=== PATIENT | female | born 1970 | race Caucasian/White ===

== ENCOUNTER 2016-03-14 09:07 | Inpatient (IN) | payer OTHER ==
[~2016-03-14] VITALS: Ht 170.2 cm; Wt 73.0 kg
[2016-03-14 09:09] VITALS: BP 140/72; PULSE 58; RESP 24; TEMP 98.1; O2SAT 99
[2016-03-14] MEDS ORDERED: ONDANSETRON HCL 4 MG/2 ML VIAL ONE (09:16)
[2016-03-14] MEDS ORDERED: SODIUM CHLOR 0.9% 1000 ML INJ 1,000 ML IV SCH (09:34)
--- NOTE | 2016-03-14 09:36 | PD ---
HPI Chief Complaint: Abdominal Pain Time Seen by Provider: 09:34 Travel History International Travel<30 days: No Contact w/Intl Traveler<30days: No Traveled to known affect area: No History of Present Illness HPI 46-year-old female came to the emergency room with history of abdominal pain and vomiting. Patient is here with her friend and together they're giving the history. Patient appears to be in significant distress and anxious. She was brought in from the triage in a wheelchair holding the emesis bag and retching constantly. Patient says that she was admitted at [facility] for this condition over the weekend and was discharge yesterday. However her symptoms continued at home and that's why she has come back to this emergency room now. Patient was diagnosed with pancreatitis 20 years ago. She occasionally gets symptoms of abdominal pain nausea and vomiting but usually it goes away. She never had to come to the emergency room up until couple days ago. There is associated abdominal pain which she points to all over her abdomen. There was CAT scan and x-rays done at the other hospital which she was told was within normal limits. She was diagnosed with enteritis and colitis and was diagnosed home on Flagyl, Zofran and MiraLAX. She has been taking these medications like she supposed to. Vital signs were stable. [facility] Past Medical History Narrative Medical List of her past medical history was reviewed from the nursing note. Social History Tobacco Use: Yes Allergies-Medications (Allergen,Severity, Reaction): Coded Allergies: No Known Allergies (Unverified , 03/14/16) Comments No known drug allergies. Reported Meds & Prescriptions Reported Meds & Active Scripts Active Reported Flagyl (Metronidazole) 500 Mg Tab 500 Mg PO TID Morphine ER (Morphine Sulfate) 30 Mg Tab 30 Mg PO DAILY Synthroid (Levothyroxine Sodium) 125 Mcg Tab 125 Mcg PO DAILY Narrative Medication List of her home medications reviewed from the nursing note. Review of Systems Except as stated in HPI: all other systems reviewed are Neg Physical Exam Narrative GENERAL: Awake, alert, anxious, significant distress SKIN: Warm and dry. HEAD: Atraumatic. Normocephalic. EYES: Pupils equal and round. No scleral icterus. No injection or drainage. ENT: No nasal bleeding or discharge. Mucous membranes pink and moist. NECK: Trachea midline. No JVD. CARDIOVASCULAR: Regular rate and rhythm. No murmur appreciated. RESPIRATORY: No accessory muscle use. Clear to auscultation. Breath sounds equal bilaterally. GASTROINTESTINAL: Abdomen soft, non-tender, decreased bowel sounds, nondistended. Hepatic and splenic margins not palpable. MUSCULOSKELETAL: No obvious deformities. No clubbing. No cyanosis. No edema. NEUROLOGICAL: Awake and alert. No obvious cranial nerve deficits. Motor grossly within normal limits. Normal speech. PSYCHIATRIC: Appropriate mood and affect; insight and judgment normal. Data Data Last Documented VS Vital Signs Date Time Temp Pulse Resp B/P Pulse Ox O2 Delivery O2 Flow Rate FiO2 03/14/16 11:01 20 03/14/16 09:09 98.1 58 140/72 99 Room Air Orders Ondansetron Inj (Zofran Inj) (03/14/16 09:16) Complete Blood Count With Diff (03/14/16 09:34) Comprehensive Metabolic Panel (03/14/16 09:34) Lipase (03/14/16 09:34) Urinalysis - C+S If Indicated (03/14/16 09:34) Iv Access Insert/Monitor (03/14/16 09:34) Ecg Monitoring (03/14/16 09:34) Oximetry (03/14/16 09:34) Ondansetron Inj (Zofran Inj) (03/14/16 09:45) Pantoprazole Inj (Protonix Inj) (03/14/16 09:45) Sodium Chlor 0.9% 1000 Ml Inj (Ns 1000 M (03/14/16 09:34) Sodium Chloride 0.9% Flush (Ns Flush) (03/14/16 09:45) Electrocardiogram (03/14/16 09:34) Ketorolac Inj (Toradol Inj) (03/14/16 09:45) Ed Poc Ultrasound (03/14/16 09:34) Promethazine Inj (Phenergan Inj) (03/14/16 10:30) Place Ng Tube To Low Intermit (03/14/16 11:28) Ct Abd/Pel W/O Iv Contrast (03/14/16 ) Lidocaine 2% Viscous (Xylocaine 2% Visco (03/14/16 11:45) Metoclopramide Inj (Reglan Inj) (03/14/16 12:45) Admit Order (Ed Use Only) (03/14/16 12:47) Labs Laboratory Tests Test 03/14/16 03/14/16 03/14/16 09:50 10:00 10:40 Sodium Level 138 MEQ/L Potassium Level 4.5 MEQ/L Chloride Level 103 MEQ/L Carbon Dioxide Level 28.6 MEQ/L Anion Gap 6 MEQ/L Blood Urea Nitrogen 7 MG/DL Creatinine 0.97 MG/DL Estimat Glomerular Filtration 61 ML/MIN Rate Random Glucose 140 MG/DL Calcium Level 9.7 MG/DL Total Bilirubin 0.4 MG/DL Aspartate Amino Transf 37 U/L (AST/SGOT) Alanine Aminotransferase 48 U/L (ALT/SGPT) Alkaline Phosphatase 48 U/L Total Protein 8.0 GM/DL Albumin 4.2 GM/DL Lipase 79 U/L Urine Color YELLOW Urine Turbidity HAZY Urine pH 6.0 Urine Specific O'Brien 1.020 Urine Protein NEG mg/dL Urine Glucose (UA) NEG mg/dL Urine Ketones NEG mg/dL Urine Occult Blood NEG Urine Nitrite NEG Urine Bilirubin NEG Urine Urobilinogen LESS THAN 2.0 MG/DL Urine Leukocyte Esterase NEG Urine WBC 1 /hpf Urine Squamous Epithelial 1 /hpf Cells Urine Calcium Oxalate Crystals RARE /hpf Urine Amorphous Sediment RARE Urine Hyaline Casts 1 /lpf Urine Mucus MOD /lpf Microscopic Urinalysis Comment CULT NOT INDICATED White Blood Count 15.5 TH/MM3 Red Blood Count 4.88 MIL/MM3 Hemoglobin 15.2 GM/DL Hematocrit 44.3 % Mean Corpuscular Volume 90.9 FL Mean Corpuscular Hemoglobin 31.2 PG Mean Corpuscular Hemoglobin 34.3 % Concent Red Cell Distribution Width 13.0 % Platelet Count 498 TH/MM3 Mean Platelet Volume 9.3 FL Neutrophils (%) (Auto) 79.1 % Lymphocytes (%) (Auto) 15.4 % Monocytes (%) (Auto) 4.3 % Eosinophils (%) (Auto) 0.6 % Basophils (%) (Auto) 0.6 % Neutrophils # (Auto) 12.3 TH/MM3 Lymphocytes # (Auto) 2.4 TH/MM3 Monocytes # (Auto) 0.7 TH/MM3 Eosinophils # (Auto) 0.1 TH/MM3 Basophils # (Auto) 0.1 TH/MM3 CBC Comment AUTO DIFF Differential Comment AUTO DIFF CONFIRMED Platelet Estimate HIGH Platelet Morphology Comment NORMAL Red Cell Morphology Comment NORMAL MDM Medical Decision Making Medical Screen Exam Complete: Yes Emergency Medical Condition: Yes Medical Record Reviewed: Yes Interpretation(s) Twelve-lead EKG was reviewed by me. Normal sinus rhythm, normal axis, nonspecific ST-T wave changes. Heart rate of 60 bpm. Differential Diagnosis Gastroparesis, intractable vomiting, acute on chronic abdominal pain, acute pancreatitis. Narrative Course 12:26 PM blood test results are back and patient has some leukocytosis which could be from violent retching. We tried to call [facility] to send patient's medical record and test results which has not been faxed yet. Patient was given IV Zofran followed by Phenergan but she continues to vomit. I 've ordered a CT scan of her abdomen and pelvis and asked the nurse to put a nasogastric tube in. CT has been done. Awaiting for the report. Patient will need to be admitted for intractable vomiting. 12:[address] scan report just came back and shows possible partial small bowel obstruction. The NGT is already in. Awaiting for the hospitalist to call back. Procedures EKG Prior to Arrival: No Diagnosis Primary Impression: Partial small bowel obstruction Additional Impressions: Abdominal pain Qualified Code: R10.84 - Generalized abdominal pain Intractable vomiting Qualified Code: R11.2 - Intractable vomiting with nausea, unspecified vomiting type Admitting Information Admitting Physician Requests: Admit Soila Burgos MD Mar 14, 2016 09:36
[2016-03-14] MEDS ORDERED: KETOROLAC TROMETHAMINE 30 MG/ML (IVP) VIAL IVP ONE (09:45)
[2016-03-14] MEDS ORDERED: ONDANSETRON HCL 4 MG/2 ML VIAL IVP ONE (09:45)
[2016-03-14] MEDS ORDERED: PANTOPRAZOLE SODIUM 40 MG VIAL IVP ONE (09:45)
[2016-03-14] MEDS ORDERED: SODIUM CHLORIDE 0.9% FLUSH 5 ML FLUSH IVF PRN (09:45)
[2016-03-14] MEDS ORDERED: MORP1TAB25 PO (09:57)
[2016-03-14] MEDS ORDERED: LEVO.125 PO (09:57)
[2016-03-14] MEDS ORDERED: METR-1 PO (09:58)
[2016-03-14] MEDS ORDERED: PROMETHAZINE INJ 25 MG/ML VIAL IM ONE (10:30)
[2016-03-14 10:33] LABS: ALKALINE PHOSPHATASE 48 U/L (45-117); TOTAL BILIRUBIN ADULT 0.4 MG/DL (0.2-1.0)
[2016-03-14 10:41] LABS: ALT (GPT) 48 U/L (10-53); ANION GAP 6 MEQ/L (5-15); AST (GOT) 37 U/L (15-37); BICARBONATE 28.6 MEQ/L (21.0-32.0); BLOOD UREA NITROGEN 7 MG/DL (7-18); CHLORIDE 103 MEQ/L (98-107); GLOMERULAR FILTRATION RATE 61 ML/MIN (>89); SODIUM (NA) 138 MEQ/L (136-145)
[2016-03-14 10:43] LABS: POTASSIUM 4.5 MEQ/L (3.5-5.1)
[2016-03-14 10:50] LABS: AUTOMATED NEUTROPHIL # 12.3 TH/MM3 (1.8-7.7); BASOPHIL # 0.1 TH/MM3 (0-0.2); BASOPHIL % 0.6 % (0.0-2.0); EOSINOPHIL # 0.1 TH/MM3 (0-0.4); EOSINOPHIL % 0.6 % (0.0-4.0); HEMATOCRIT 44.3 % (35.0-46.0); LYMPH % 15.4 % (9.0-44.0); LYMPHOCYTE # 2.4 TH/MM3 (1.0-4.8); MEAN CELL VOLUME 90.9 FL (80.0-100.0); MEAN CORPUSCULAR HEMOGLOBIN 31.2 PG (27.0-34.0); MEAN CORPUSCULAR HGB CONC 34.3 % (32.0-36.0); MONO % 4.3 % (0.0-8.0); NEUT % 79.1 % (16.0-70.0); PLATELET COUNT 498 TH/MM3 (150-450); RED BLOOD COUNT 4.88 MIL/MM3 (4.00-5.30); WHITE BLOOD COUNT 15.5 TH/MM3 (4.0-11.0)
[2016-03-14 11:02] LABS: HEMO FLAGS AUTO DIFF
[2016-03-14 11:26] LABS: PLATELET ESTIMATE SMEAR HIGH (NORMAL); PLATELET MORPHOLOGY NORMAL (NORMAL); SCAN/DIFF AUTO DIFF CONFIRMED
[2016-03-14] MEDS ORDERED: LIDOCAINE VISCOUS 2% SOLN 15 ML UDC SWISH-SWAL ONE (11:45)
--- NOTE | 2016-03-14 12:23 | RADRPT ---
EXAM DATE/TIME: 03/14/2016 11:54 [facility] COMPARISON: No previous studies available for comparison. INDICATIONS : Worsening diffuse abdomen pain since last night. ORAL CONTRAST: No oral contrast ingested. RADIATION DOSE: 8.07 CTDIvol (mGy) MEDICAL HISTORY : None SURGICAL HISTORY : oophorectomy ENCOUNTER: Initial ACUITY: 2 days PAIN SCALE: 7/10 LOCATION: Bilateral abdomen TECHNIQUE: Volumetric scanning of the abdomen and pelvis was performed. Using automated exposure control and adjustment of the mA and/or kV according to patient size, radiation dose was kept as low as reasonably achievable to obtain optimal diagnostic quality images. FINDINGS: LOWER LUNGS: The visualized lower lungs are clear. LIVER: Homogeneous density without lesion. There is no dilation of the biliary tree. No calcifi ed gallstones. SPLEEN: Normal size without lesion. PANCREAS: Within normal limits. KIDNEYS: Normal in size and shape. There is no mass, stone, or hydronephrosis. ADRENAL GLANDS: Within normal limits. VASCULAR: There is no aortic aneurysm. BOWEL/MESENTERY: There are multiple fluid filled mildly dilated loops of jejunum. Differential in cludes partial small bowel obstruction, small bowel ileus, and jejunitis. Clinical correlation is rec ommended. ABDOMINAL WALL: Within normal limits. RETROPERITONEUM: There is no lymphadenopathy. BLADDER: No wall thickening or mass. REPRODUCTIVE: Within normal limits. INGUINAL: There is no lymphadenopathy or hernia. MUSCULOSKELETAL: Within normal limits for patient age. CONCLUSION: Multiple fluid filled mildly dilated loops of jejunum suggesting partial small bowel obstruction, small bowel ileus or jejunitis. Clinical correlation is recommended. Clinton Cm MD on March 14, 2016 at 12:16 Board Certified Radiologist. This report was verified electronically.
[2016-03-14] MEDS ORDERED: METOCLOPRAMIDE HCL 10 MG/2 ML VIAL IV PUSH ONE (12:45)
[2016-03-14 13:06] LABS: BLOOD, URINE NEG (NEG); CALCIUM OXALATE CRYSTALS,URINE RARE /hpf; COMMENT (UR) CULT NOT INDICATED; CULTURE IF INDICATED CULT NOT INDICATED; GLUCOSE,URINE NEG (NEG); HYALINE CAST, URINE 1 /lpf (RARE); KETONE, URINE NEG (NEG); MUCUS URINE MOD /lpf (OCC); NITRITE,URINE NEG (NEG); SQUAMOUS EPITHELIAL CELL URINE 1 /hpf (0-5); URINE COLOR YELLOW (YELLW/STRAW)
--- NOTE | 2016-03-14 13:10 | HHI.HP ---
[facility] Service [facility] Primary Care Physician Unknown Admission Diagnosis bowel obstruction Diagnoses: (1) Abdominal pain (2) Intractable vomiting (3) Partial small bowel obstruction (4) Hypothyroidism (5) Leukocytosis Chief Complaint: Abdominal pain Travel History International Travel<30 Days: No Contact w/Intl Traveler <30 Da: No Traveled to Known Affected Are: No History of Present Illness The patient is a 46-year-old female who presented to the emergency department today complaining of worsening abdominal pain, nausea, and vomiting. She states that she was hospitalized at [facility] in [place] last week. She was discharged on Monday. Her symptoms were very similar and she was told that she might have a small bowel obstruction. She states that she did well on Monday and Monday following discharge from the hospital, but her symptoms worsened this morning. She developed intractable nausea and vomiting as well as upper abdominal pain. She also reports headache. She has some chest discomfort, which she feels is the same as the upper abdominal pain. She does feel somewhat better at this time than when she came in. She did have a bowel movement today, which she describes as loose, but not watery. Review of Systems Constitutional: DENIES: Fever, Chills, Night Sweats Eyes: DENIES: Blurred vision, Vision loss Ears, nose, mouth, throat: DENIES: Hearing loss Respiratory: DENIES: Cough, Wheezing, Sputum production, Shortness of breath Cardiovascular: DENIES: Chest pain, Palpitations, Dyspnea on Exertion, Lower Extremity Edema Gastrointestinal: COMPLAINS OF: Abdominal pain, Nausea, Vomiting, DENIES: Constipation, Diarrhea Genitourinary: DENIES: Urinary frequency, Urinary incontinence, Urgency, Hematuria, Dysuria, Nocturia Musculoskeletal: DENIES: Joint pain, Muscle aches Integumentary: DENIES: Pruritus, Rash Hematologic/lymphatic: DENIES: Bruising Neurologic: COMPLAINS OF: Headache Past Family Social History Past Medical History Fibromyalgia Degenerative disc disease Hypothyroidism Past Surgical History Oophorectomy Reported Medications Flagyl (Metronidazole) 500 Mg Tab 500 Mg PO TID Morphine ER (Morphine Sulfate) 30 Mg Tab 30 Mg PO DAILY Synthroid (Levothyroxine Sodium) 125 Mcg Tab 125 Mcg PO DAILY Allergies: Coded Allergies: No Known Allergies (Unverified , 03/14/16) Family History Heart disease Epilepsy Diabetes mellitus Social History Smokes almost 1 pack per day. Denies alcohol use. Did use marijuana recently, but denies IV drug use. Physical Exam Vital Signs Vital Signs Date Time Temp Pulse Resp B/P Pulse Ox O2 Delivery O2 Flow Rate FiO2 03/14/16 09:09 98.1 58 24 140/72 99 Room Air Physical Exam GENERAL: Well-nourished, well-developed female in no acute distress. HEENT: Normocephalic, atraumatic. Pupils equal, round and reactive. Extraocular movements intact. No scleral icterus. No injection or drainage. Oropharynx is clear. Mucous membranes are moist. NG tube in place. CARDIOVASCULAR: Regular rate and rhythm without murmurs, gallops, or rubs. RESPIRATORY: Clear to auscultation. No wheezes, rales, or rhonchi. Breathing is non-labored. GASTROINTESTINAL: Abdomen soft, tender to palpation in the midepigastric region , nondistended. EXTREMITIES: No lower extremity edema. No calf tenderness. PSYCH: Alert and oriented x 3. Laboratory Laboratory Tests Test 03/14/16 03/14/16 09:50 10:40 Sodium Level 138 Potassium Level 4.5 Chloride Level 103 Carbon Dioxide Level 28.6 Anion Gap 6 Blood Urea Nitrogen 7 Creatinine 0.97 Estimat Glomerular Filtration 61 Rate Random Glucose 140 Calcium Level 9.7 Total Bilirubin 0.4 Aspartate Amino Transf 37 (AST/SGOT) Alanine Aminotransferase 48 (ALT/SGPT) Alkaline Phosphatase 48 Total Protein 8.0 Albumin 4.2 Lipase 79 White Blood Count 15.5 Red Blood Count 4.88 Hemoglobin 15.2 Hematocrit 44.3 Mean Corpuscular Volume 90.9 Mean Corpuscular Hemoglobin 31.2 Mean Corpuscular Hemoglobin 34.3 Concent Red Cell Distribution Width 13.0 Platelet Count 498 Mean Platelet Volume 9.3 Neutrophils (%) (Auto) 79.1 Lymphocytes (%) (Auto) 15.4 Monocytes (%) (Auto) 4.3 Eosinophils (%) (Auto) 0.6 Basophils (%) (Auto) 0.6 Neutrophils # (Auto) 12.3 Lymphocytes # (Auto) 2.4 Monocytes # (Auto) 0.7 Eosinophils # (Auto) 0.1 Basophils # (Auto) 0.1 CBC Comment AUTO DIFF Differential Comment AUTO DIFF CONFIRMED Platelet Estimate HIGH Platelet Morphology Comment NORMAL Red Cell Morphology Comment NORMAL Result Diagram: 03/14/16 1040 03/14/16 0950 Imaging Last Impressions Abdomen/Pelvis CT 03/14/16 0000 Signed Impressions: Service Date/Time: Monday, March 14, 2016 11:54 - CONCLUSION: Multiple fluid filled mildly dilated loops of jejunum suggesting partial small bowel obstruction, small bowel ileus or jejunitis. Clinical correlation is recommended. Clinton Cm MD Assessment and Plan Assessment and Plan 1. Abdominal pain: Secondary to partial small bowel obstruction. Patient also with intractable nausea/vomiting. NG tube placed in the ER. Continue antiemetics. Consult gastroenterology. Nothing by mouth. Continue IV fluids, pain control. 2. Leukocytosis: Likely stress reaction. Monitor labs. 3. Tobacco abuse: Patient has been counseled to quit smoking. 4. Chronic narcotic use: Patient takes morphine 15 mg twice a day for degenerative disc disease and fibromyalgia. I discussed with her that this could contribute to constipation and possibly be contributing to her symptoms. We will use caution with pain medications. Will cover with IV morphine at this time as she is nothing by mouth. 5. Hypothyroidism: Continue Synthroid. 6. DVT prophylaxis: SCDs, JACKELIN gonzales. Problem Qualifiers (1) Abdominal pain: Qualified Code: R10.84 - Generalized abdominal pain (2) Intractable vomiting: Qualified Code: R11.2 - Intractable vomiting with nausea, unspecified vomiting type Maurilio Nicholson MD Mar 14, 2016 13:10
[2016-03-14 13:30] VITALS: BP 108/65; PULSE 60; RESP 20; TEMP 99.3; O2SAT 99
[2016-03-14] MEDS ORDERED: NALOXONE HCL 0.4 MG/ML AMP IV PRN (13:30)
[2016-03-14] MEDS: SODIUM CHLOR 0.9% 1000 ML INJ 1,000 ML IV SCH (14:00)
[2016-03-14] MEDS: MORPHINE SULFATE 4 MG/ML INJ IV PRN ×3 (14:01→20:57)
--- NOTE | 2016-03-14 15:30 | PD.CONS ---
HPI History of Present Illness This is a 46 year old female who has had intermittent abdominal pain and bloating for years. She went to [place] for a week 02/16-02/23. She had some abdominal distention and discomfort while she was there, but nothing major. Her symptoms gradually worsened over the next 2 weeks. She has chronic constipation and initially thought that this was contributing to her symptoms and therefore quit taking this, but her symptoms only got worse. She went to the hospital on Monday and was sent home. She went back the next day and was hospitalized until Monday. She was initially told that she had a partial small bowel obstruction and then states that she was told that this was okay and that she had an enteritis/colitis. She was treated with Miralax while she hospitalized, but states she was given so much that she started bleeding from being so raw and therefore started "dumping this." She was discharged on flagyl. She continued to have abdominal pain underneath her rib cage on both sides. This is a constant dull ache that sometimes goes to her back. This pain is aggravated by po intake, but in the past when she had this, she reports that she would feel better if she ate. She has associated nausea and vomiting with yellowish gastric secretions, no hematemesis. She had a bowel movement earlier today. She is not having any blood in her stool now. She was diagnosed with pancreatitis in her 20's. SHe underwent an EGD at that time, but has never had a colonoscopy. At the time she drank ETOH and was told if she stopped drinking, this would get better. She quit drinking but continued to have intermittent abdominal pain. She denies any recent antibiotic use other than what she received at the hospital. She denies any other sick contacts. She does not take ibuprofen or aleve. She had an oophorectomy, but denies any other abdominal surgeries. (Dolly Berry) PFSH Past Medical History Fibromyalgia Degenerative disc disease Hypothyroidism Chronic abdominal pain. Vitiligo Chronic joint pain Chronic back pain- on chronic narcotics Past Surgical History Oophorectomy EGD (Dolly Berry) Coded Allergies: No Known Allergies (Unverified , 03/14/16) Medications Allergies Coded Allergies Type Severity Reaction Last Updated Verified No Known Allergies 03/14/16 No Active Scripts Medications Dose Route/Sig Days Date Category Flagyl (Metronidazole) 500 Mg Tab 500 Mg PO TID 03/14/16 Reported Morphine ER (Morphine Sulfate) 30 Mg Tab 30 Mg PO DAILY 03/14/16 Reported Synthroid (Levothyroxine Sodium) 125 Mcg Tab 125 Mcg PO DAILY 03/14/16 Reported Family History Both parents with heart disease, DM Mother also had epilepsy, psoriasis Social History Smokes almost 1 pack per day. Denies alcohol use. Did use marijuana recently, but denies IV drug use. (Dolly Berry) Review of Systems Constitutional: COMPLAINS OF: Fatigue, Weight gain, DENIES: Weight loss, Change in appetite Respiratory: DENIES: Cough Cardiovascular: DENIES: Chest pain Gastrointestinal: COMPLAINS OF: Abdominal pain, Constipation, Nausea, Vomiting , DENIES: Black stools, Bloody stools, Diarrhea, Anorexia, Swelling of Abdomen , Heartburn, Hematemesis Musculoskeletal: COMPLAINS OF: Joint pain, Back pain Integumentary: DENIES: Abnormal pigmentation Neurologic: DENIES: Headache Psychiatric: DENIES: Confusion (Dolly Berry) GI Exam Vitals I&O Vital Signs Date Time Temp Pulse Resp B/P Pulse Ox O2 Delivery O2 Flow Rate FiO2 03/14/16 13:30 99.3 60 20 108/65 99 Room Air 03/14/16 11:01 20 03/14/16 09:09 98.1 58 24 140/72 99 Room Air Imaging Last Impressions Abdomen/Pelvis CT 03/14/16 0000 Signed Impressions: Service Date/Time: Monday, March 14, 2016 11:54 - CONCLUSION: Multiple fluid filled mildly dilated loops of jejunum suggesting partial small bowel obstruction, small bowel ileus or jejunitis. Clinical correlation is recommended. Clinton Cm MD Laboratory Test 03/14/16 03/14/16 03/14/16 09:50 10:00 10:40 Sodium Level 138 MEQ/L Potassium Level 4.5 MEQ/L Chloride Level 103 MEQ/L Carbon Dioxide Level 28.6 MEQ/L Anion Gap 6 MEQ/L Blood Urea Nitrogen 7 MG/DL Creatinine 0.97 MG/DL Estimat Glomerular Filtration 61 ML/MIN Rate Random Glucose 140 MG/DL Calcium Level 9.7 MG/DL Total Bilirubin 0.4 MG/DL Aspartate Amino Transf 37 U/L (AST/SGOT) Alanine Aminotransferase 48 U/L (ALT/SGPT) Alkaline Phosphatase 48 U/L Total Protein 8.0 GM/DL Albumin 4.2 GM/DL Lipase 79 U/L Urine Color YELLOW Urine Turbidity HAZY Urine pH 6.0 Urine Specific Dunbar 1.020 Urine Protein NEG mg/dL Urine Glucose (UA) NEG mg/dL Urine Ketones NEG mg/dL Urine Occult Blood NEG Urine Nitrite NEG Urine Bilirubin NEG Urine Urobilinogen LESS THAN 2.0 MG/DL Urine Leukocyte Esterase NEG Urine WBC 1 /hpf Urine Squamous Epithelial 1 /hpf Cells Urine Calcium Oxalate Crystals RARE /hpf Urine Amorphous Sediment RARE Urine Hyaline Casts 1 /lpf Urine Mucus MOD /lpf Microscopic Urinalysis Comment CULT NOT INDICATED White Blood Count 15.5 TH/MM3 Red Blood Count 4.88 MIL/MM3 Hemoglobin 15.2 GM/DL Hematocrit 44.3 % Mean Corpuscular Volume 90.9 FL Mean Corpuscular Hemoglobin 31.2 PG Mean Corpuscular Hemoglobin 34.3 % Concent Red Cell Distribution Width 13.0 % Platelet Count 498 TH/MM3 Mean Platelet Volume 9.3 FL Neutrophils (%) (Auto) 79.1 % Lymphocytes (%) (Auto) 15.4 % Monocytes (%) (Auto) 4.3 % Eosinophils (%) (Auto) 0.6 % Basophils (%) (Auto) 0.6 % Neutrophils # (Auto) 12.3 TH/MM3 Lymphocytes # (Auto) 2.4 TH/MM3 Monocytes # (Auto) 0.7 TH/MM3 Eosinophils # (Auto) 0.1 TH/MM3 Basophils # (Auto) 0.1 TH/MM3 CBC Comment AUTO DIFF Differential Comment AUTO DIFF CONFIRMED Platelet Estimate HIGH Platelet Morphology Comment NORMAL Red Cell Morphology Comment NORMAL Physical Examination HEENT: Normocephalic; atraumatic; no jaundice. CHEST: CTA CARDIAC: RRR ABDOMEN: Soft, nondistended, mild epigastric tenderness no hepatosplenomegaly; bowel sounds are present in all four quadrants. EXTREMITIES: No clubbing, cyanosis, or edema. SKIN: Normal; no rash; no jaundice. AREA DEVELOPMENT CONSULTANT: No focal deficits; alert and oriented times three. (Dolly Berry) Assessment and Plan Plan ASSESSMENT: - N/V, Abdominal pain with abnormal imaging, possible PSBO. Abdomen/Pelvis CT ( )---> Multiple fluid filled mildly dilated loops of jejunum suggesting partial small bowel obstruction, small bowel ileus or jejunitis. Clinical correlation is recommended. Pt reports that she has had symptoms intermittently for 20 years, but sudden worsening a few weeks ago after traveling to [place]. No abx, no sick contacts. Pt was hospitalized at [facility], had imaging, told she had sbo and then enteritis and was discharged on Flagyl. Her symptoms persisted and she became worse with more n/v today and therefore came back to ER here. Only abdominal surgery oophorectomy. No NSAID use. EGD in her 20's. No colonoscopy. (+) BM. NPO with NGT to liws. ? Enteritis. Will check stool studies and sbft. - Leukocytosis. WBC 15.5. PLAN: - NPO - NGT to liws - SBFT - Stool studies- Cdiff, wbc, o&p, giardia, c/s - CBC, BMP in am - Supportive care - Further recommendations to follow based on results of above - Pt seen and examined by Dr. Larson and myself and this note is written on his behalf (Dolly Berry) Physician Comments Seen and examined with Ms. Jamal MCFADDEN, SBFT ordered. Pt. has history of crohns disease in family and has had chronic problems with her abdomen for over 20 years. NG to L.I.S. Will follow, thank you (Lisa Larson MD) Dolly Berry Mar 14, 2016 15:30 Lisa Larson MD Mar 14, 2016 16:33
[2016-03-14 17:00] VITALS: BP 111/70; PULSE 70; RESP 18; O2SAT 100
[2016-03-14] MEDS: ONDANSETRON HCL 4 MG/2 ML VIAL IVP PRN ×2 (17:04→20:58)
[2016-03-14] MEDS ORDERED: DIATRIZOATE MEGLUM/DIATRIZOATE SOD 120 ML BTL (for RAD DIAG) NG ONE (17:32)
--- NOTE | 2016-03-14 19:31 | RADRPT ---
EXAM DATE/TIME: 03/14/2016 16:49 [facility] COMPARISON: No previous studies available for comparison. INDICATIONS : Obstruction, pain. FLUORO TIME: 0 minutes IMAGE COUNT: CONTRAST: Gastroprem IMAGING TIME(S): 15 min, 30 min, 45 min, 1 hr, 1.5 hrs MEDICAL HISTORY : Pancreatitis. SURGICAL HISTORY : ovary removal. ENCOUNTER: Initial ACUITY: 3 days PAIN SCORE: 7/10 LOCATION: Bilateral upper quadrant abdomen. FINDINGS: Gastroview placed through nasogastric tube. Stomach fills normally. There is some mild dilatation of proximal small bowel loops. However, there is no obstruction and contrast reaches the colon by one ho ur and 30 minutes. CONCLUSION: 1. Negative for obstruction. Contrast reaches colon by one hour and 30 minutes. Mildly dilated proxim al small bowel loops. Nasogastric tube coiled in the stomach. No free air. Samm Mcmanus MD on March 14, 2016 at 19:27 Board Certified Radiologist. This report was verified electronically.
[2016-03-14] MEDS: METOCLOPRAMIDE HCL 10 MG/2 ML VIAL IV PUSH PRN (21:05)
[2016-03-14 22:32] VITALS: BP 109/66; PULSE 62; RESP 18; TEMP 97.4; O2SAT 95
[2016-03-15 00:46] VITALS: BP 120/75; PULSE 61; RESP 18; TEMP 96.8; O2SAT 98
[2016-03-15] MEDS: ONDANSETRON HCL 4 MG/2 ML VIAL IVP PRN ×3 (01:06→14:18)
[2016-03-15] MEDS: SODIUM CHLOR 0.9% 1000 ML INJ 1,000 ML IV SCH ×3 (01:06→22:18)
[2016-03-15] MEDS: MORPHINE SULFATE 4 MG/ML INJ IV PRN ×6 (01:07→22:14)
[2016-03-15 01:18] LABS: C. DIFF EPI 027 PRESUMPTIVE NEGATIVE (NEGATIVE); C. DIFF TOXIN PCR NEGATIVE (NEGATIVE)
[2016-03-15 05:40] VITALS: BP 110/71; PULSE 55; RESP 18; O2SAT 98
[2016-03-15] MEDS: LEVOTHYROXINE SODIUM 125 MCG TAB PO SCH ×2 (05:58→05:59)
[2016-03-15 07:48] VITALS: BP 118/70; PULSE 53; RESP 20; TEMP 97.6; O2SAT 97
--- NOTE | 2016-03-15 08:20 | HHI.PR ---
Subjective Remarks Follow-up small bowel obstruction, leukocytosis. The patient states that she is feeling better today. Nausea and vomiting have improved. Still having upper abdominal pain below the rib cage, but states that it is better today. Also reporting some discomfort in her back. Objective Vitals Vital Signs Date Time Temp Pulse Resp B/P Pulse Ox O2 Delivery O2 Flow Rate FiO2 03/15/16 07:48 97.6 53 20 118/70 97 03/15/16 05:40 55 18 110/71 98 03/15/16 00:46 96.8 61 18 120/75 98 03/15/16 00:35 20 03/14/16 22:32 97.4 62 18 109/66 95 03/14/16 17:00 70 18 111/70 100 Room Air 03/14/16 13:30 99.3 60 20 108/65 99 Room Air 03/14/16 11:01 20 03/14/16 09:09 98.1 58 24 140/72 99 Room Air Result Diagram: 03/14/16 1040 03/14/16 0950 Imaging Last Impressions Small Bowel X-Ray 03/14/16 0000 Signed Impressions: Service Date/Time: Monday, March 14, 2016 16:49 - CONCLUSION: 1. Negative for obstruction. Contrast reaches colon by one hour and 30 minutes. Mildly dilated proximal small bowel loops. Nasogastric tube coiled in the stomach. No free air. Samm Mcmanus MD Abdomen/Pelvis CT 03/14/16 0000 Signed Impressions: Service Date/Time: Monday, March 14, 2016 11:54 - CONCLUSION: Multiple fluid filled mildly dilated loops of jejunum suggesting partial small bowel obstruction, small bowel ileus or jejunitis. Clinical correlation is recommended. Clinton Cm MD Objective Remarks General: No acute distress. Heart: Regular rate and rhythm. No murmur. Lungs: Clear to auscultation bilaterally. No wheezes, rales, or rhonchi. Breathing is nonlabored. Abdomen: Soft, nontender, nondistended. Extremities: No lower extremity edema. Psych: Alert and oriented. Urinary Catheter: No Vascular Central Line Catheter: No A/P Problem List: (1) Abdominal pain ICD Code: R10.9 Status: Acute (2) Intractable vomiting ICD Code: R11.10 Status: Acute (3) Partial small bowel obstruction ICD Code: K56.69 Status: Acute (4) Hypothyroidism ICD Code: E03.9 Status: Acute (5) Leukocytosis ICD Code: D72.829 Status: Acute Assessment and Plan 1. Abdominal pain: Secondary to partial small bowel obstruction. Nausea and vomiting have improved. NG tube in place to LIWS. Appreciate gastroenterology recommendations. Small bowel follow-through is negative for obstruction. 2. Leukocytosis: Likely stress reaction. Monitor labs. 3. Tobacco abuse: Patient has been counseled to quit smoking. 4. Chronic narcotic use: Patient takes morphine 15 mg twice a day for degenerative disc disease and fibromyalgia. I discussed with her that this could contribute to constipation and possibly be contributing to her symptoms. We will use caution with pain medications. Will cover with IV morphine at this time as she is nothing by mouth. 5. Hypothyroidism: Continue Synthroid. 6. DVT prophylaxis: SCDs, JACKELIN gonzales. Problem Qualifiers (1) Abdominal pain: Qualified Code: R10.84 - Generalized abdominal pain (2) Intractable vomiting: Qualified Code: R11.2 - Intractable vomiting with nausea, unspecified vomiting type Maurilio Nicholson MD Mar 15, 2016 08:20
[2016-03-15 08:31] LABS: AUTOMATED NEUTROPHIL # 4.3 TH/MM3 (1.8-7.7); BASOPHIL % 0.5 % (0.0-2.0); EOSINOPHIL # 0.1 TH/MM3 (0-0.4); EOSINOPHIL % 0.8 % (0.0-4.0); HEMATOCRIT 36.6 % (35.0-46.0); HEMO FLAGS DIFF FINAL; LYMPH % 34.6 % (9.0-44.0); LYMPHOCYTE # 2.6 TH/MM3 (1.0-4.8); MEAN CORPUSCULAR HEMOGLOBIN 30.5 PG (27.0-34.0); MEAN CORPUSCULAR HGB CONC 33.1 % (32.0-36.0); MONO % 6.8 % (0.0-8.0); NEUT % 57.3 % (16.0-70.0); PLATELET COUNT 360 TH/MM3 (150-450); RED BLOOD COUNT 3.98 MIL/MM3 (4.00-5.30); RED CELL DISTRIBUTION WIDTH 13.4 % (11.6-17.2); WHITE BLOOD COUNT 7.5 TH/MM3 (4.0-11.0)
[2016-03-15 08:46] LABS: BICARBONATE 24.2 MEQ/L (21.0-32.0)
[2016-03-15] MEDS: PANTOPRAZOLE SODIUM 40 MG VIAL IV PUSH SCH (09:45)
--- NOTE | 2016-03-15 11:32 | HHI.GIFU ---
Subjective Remarks Resting in bed. States she is feeling much better. C/O diarrhea after SBFT. No bleeding. (Dolly Berry) Objective Vitals I&O Vital Signs Date Time Temp Pulse Resp B/P Pulse Ox O2 Delivery O2 Flow Rate FiO2 03/15/16 07:48 97.6 53 20 118/70 97 03/15/16 05:40 55 18 110/71 98 03/15/16 00:46 96.8 61 18 120/75 98 03/15/16 00:35 20 03/14/16 22:32 97.4 62 18 109/66 95 03/14/16 17:00 70 18 111/70 100 Room Air 03/14/16 13:30 99.3 60 20 108/65 99 Room Air Laboratory Laboratory Tests Test 03/14/16 03/15/16 23:43 08:12 Stool C. difficile Toxin (PCR) NEGATIVE Stl C. difficile Toxin PRESUMPTIVE Epiderm 027 NEGATIVE White Blood Count 7.5 Red Blood Count 3.98 Hemoglobin 12.1 Hematocrit 36.6 Mean Corpuscular Volume 92.0 Mean Corpuscular Hemoglobin 30.5 Mean Corpuscular Hemoglobin 33.1 Concent Red Cell Distribution Width 13.4 Platelet Count 360 Mean Platelet Volume 8.0 Neutrophils (%) (Auto) 57.3 Lymphocytes (%) (Auto) 34.6 Monocytes (%) (Auto) 6.8 Eosinophils (%) (Auto) 0.8 Basophils (%) (Auto) 0.5 Neutrophils # (Auto) 4.3 Lymphocytes # (Auto) 2.6 Monocytes # (Auto) 0.5 Eosinophils # (Auto) 0.1 Basophils # (Auto) 0.0 CBC Comment DIFF FINAL Differential Comment Sodium Level 144 Potassium Level 4.0 Chloride Level 112 Carbon Dioxide Level 24.2 Anion Gap 8 Blood Urea Nitrogen 11 Creatinine 0.87 Estimat Glomerular Filtration 69 Rate Random Glucose 97 Calcium Level 8.3 Date/Time Procedure Status Source Growth 03/14/16 23:43 Cryptosporidium Exam Resulted Stool Stool Pending 03/14/16 23:43 Stool Pus (FATOUMATA) - Final Resulted Stool Stool RARE WBC 03/14/16 23:43 Giardia Antigen (FATOUMATA) Resulted Stool Stool Pending 03/14/16 23:43 Received Stool Stool Pending Imaging Last Impressions Small Bowel X-Ray 03/14/16 0000 Signed Impressions: Service Date/Time: Monday, March 14, 2016 16:49 - CONCLUSION: 1. Negative for obstruction. Contrast reaches colon by one hour and 30 minutes. Mildly dilated proximal small bowel loops. Nasogastric tube coiled in the stomach. No free air. Samm Mcmanus MD Abdomen/Pelvis CT 03/14/16 0000 Signed Impressions: Service Date/Time: Monday, March 14, 2016 11:54 - CONCLUSION: Multiple fluid filled mildly dilated loops of jejunum suggesting partial small bowel obstruction, small bowel ileus or jejunitis. Clinical correlation is recommended. Clinton Cm MD Physical Exam HEENT: Normocephalic; atraumatic; no jaundice. CHEST: CTA CARDIAC: RRR ABDOMEN: Soft, nondistended, nontender; no hepatosplenomegaly; bowel sounds are present in all four quadrants. NGT to LIWS- small amount drainage EXTREMITIES: No clubbing, cyanosis, or edema. SKIN: Normal; no rash; no jaundice. ENGINE OILER: No focal deficits; alert and oriented times three. (Dolly BerryP) Assessment and Plan Plan ASSESSMENT: - N/V, Abdominal pain with abnormal imaging, possible PSBO. Abdomen/Pelvis CT ( )---> Multiple fluid filled mildly dilated loops of jejunum suggesting partial small bowel obstruction, small bowel ileus or jejunitis. Clinical correlation is recommended. Pt reports that she has had symptoms intermittently for 20 years, but sudden worsening a few weeks ago after traveling to [place]. No abx, no sick contacts. Pt was hospitalized at [facility], had imaging, told she had sbo and then enteritis and was discharged on Flagyl. Her symptoms persisted and she became worse with more n/v today and therefore came back to ER here. Only abdominal surgery oophorectomy. No NSAID use. EGD in her 20's. No colonoscopy. SBFT (03/14/16)--> 1. Negative for obstruction. Contrast reaches colon by one hour and 30 minutes. Mildly dilated proximal small bowel loops. Nasogastric tube coiled in the stomach. No free air. NPO with NGT to liws. ? Enteritis. Stool studies pending. Clinically improved. SBFT without obstruction. WBC improved. Stool studies pending. Will plan for enteroscopy and colonoscopy in am. - Leukocytosis. Improved. PLAN: - Plan for enteroscopy/colonoscopy in am - Clamp NGT - Clear liquids - NPO after MN - Magnesium Citrate prep - Await Stool studies - CBC, BMP in am - Supportive care - Further recommendations to follow based on results of above - Pt seen and examined by Dr. Larson and myself and this note is written on his behalf (Dolly Berry) Physician Comments Seen and examined with Ms. Jamal MCFADDEN, sbft -ve for obstruction. Enteroscopy/ colonoscopy planned for tomorrow. (Lisa Larson MD) Dolly Berry Mar 15, 2016 11:32 Lisa Larson MD Mar 15, 2016 17:21
[2016-03-15 12:13] VITALS: BP 133/72; PULSE 62; RESP 20; TEMP 98; O2SAT 96
[2016-03-15 15:16] VITALS: BP 104/63; PULSE 51; RESP 20; TEMP 97.9; O2SAT 97
[2016-03-15] MEDS ORDERED: MAGNESIUM CITRATE SOLN 300 ML BTL PO ONE ×2 (17:00→19:00)
--- NOTE | 2016-03-15 17:08 | EKG ---
Date Performed: 03/14/2016 Time Performed: 09:51:35 PTAGE: 46 years EKG: Sinus rhythm WITH OCCASIONAL SUPRAVENTRICULAR PREMATURE COMPLEXES BORDERLINE ECG NO PREVIOUS TRACING DOCTOR: Ed Membreno Interpretating Date/Time 03/15/2016 17:03:09
[2016-03-15 21:19] VITALS: BP 108/69; PULSE 56; RESP 18; TEMP 97.2; O2SAT 95
[2016-03-16] VITALS (7 sets, daily range): BP systolic 109–135; BP diastolic 62–73; PULSE 52–71; RESP 16–20; TEMP 96.8–98.6; O2SAT 95–100
[2016-03-16] MEDS: LEVOTHYROXINE SODIUM 125 MCG TAB PO SCH (05:17)
[2016-03-16 06:26] LABS: AUTOMATED NEUTROPHIL # 3.6 TH/MM3 (1.8-7.7); BASOPHIL # 0.1 TH/MM3 (0-0.2); BASOPHIL % 0.9 % (0.0-2.0); EOSINOPHIL # 0.1 TH/MM3 (0-0.4); EOSINOPHIL % 1.7 % (0.0-4.0); HEMATOCRIT 33.3 % (35.0-46.0); HEMO FLAGS DIFF FINAL; LYMPHOCYTE # 2.9 TH/MM3 (1.0-4.8); MEAN CELL VOLUME 89.8 FL (80.0-100.0); MEAN CORPUSCULAR HEMOGLOBIN 31.9 PG (27.0-34.0); MEAN CORPUSCULAR HGB CONC 35.5 % (32.0-36.0); MONO % 7.2 % (0.0-8.0); NEUT % 50.2 % (16.0-70.0); PLATELET COUNT 362 TH/MM3 (150-450); RED CELL DISTRIBUTION WIDTH 12.9 % (11.6-17.2); WHITE BLOOD COUNT 7.2 TH/MM3 (4.0-11.0)
[2016-03-16 06:43] LABS: BICARBONATE 29.6 MEQ/L (21.0-32.0); POTASSIUM 3.8 MEQ/L (3.5-5.1)
[2016-03-16] MEDS: MORPHINE SULFATE 4 MG/ML INJ IV PRN ×4 (07:27→21:19)
[2016-03-16] MEDS: SODIUM CHLOR 0.9% 1000 ML INJ 1,000 ML IV SCH ×2 (07:27→16:38)
[2016-03-16] MEDS ORDERED: PROPOFOL 200 MG/20 ML AMP IV ONE (09:02)
[2016-03-16] MEDS: ONDANSETRON HCL 4 MG/2 ML VIAL IVP PRN ×2 (10:11→16:37)
[2016-03-16] MEDS: PANTOPRAZOLE SODIUM 40 MG VIAL IV PUSH SCH (10:11)
--- NOTE | 2016-03-16 10:28 | HHI.PR ---
Subjective Remarks Follow up for partial SBO. The patient is seen s/p enteroscopy/colonoscopy which was mostly unremarkable, some external hemorrhoids. She reports diffuse upper abdominal pain today. She feels nauseous but no vomiting. She feels feverish with chills however no documented fevers. Discussed with desean Patel to advance diet and d/c home from GI standpoint when tolerating po intake. Objective Vitals Vital Signs Date Time Temp Pulse Resp B/P Pulse Ox O2 Delivery O2 Flow Rate FiO2 03/16/16 09:30 57 16 125/75 100 03/16/16 09:22 98.3 53 16 106/67 100 03/16/16 08:42 98.6 56 16 117/71 100 03/16/16 08:26 96.8 58 18 124/73 100 03/16/16 07:46 18 03/16/16 06:11 97.4 52 18 117/66 95 03/16/16 01:40 98.0 54 18 135/72 95 03/15/16 21:19 97.2 56 18 108/69 95 03/15/16 15:16 97.9 51 20 104/63 97 03/15/16 12:13 98.0 62 20 133/72 96 Result Diagram: 03/16/16 0546 03/16/16 0546 Imaging Last Impressions Small Bowel X-Ray 03/14/16 0000 Signed Impressions: Service Date/Time: Monday, March 14, 2016 16:49 - CONCLUSION: 1. Negative for obstruction. Contrast reaches colon by one hour and 30 minutes. Mildly dilated proximal small bowel loops. Nasogastric tube coiled in the stomach. No free air. Samm Mcmanus MD Abdomen/Pelvis CT 03/14/16 0000 Signed Impressions: Service Date/Time: Monday, March 14, 2016 11:54 - CONCLUSION: Multiple fluid filled mildly dilated loops of jejunum suggesting partial small bowel obstruction, small bowel ileus or jejunitis. Clinical correlation is recommended. Clinton Cm MD Objective Remarks GENERAL: Well-nourished, well-developed middle aged female patient in [facility]. SKIN: Warm and dry. No rash. HEAD: Normocephalic. Atraumatic. NECK: Supple. Trachea midline. CARDIOVASCULAR: Regular rate and rhythm. S1, S2 noted. No murmur appreciated. RESPIRATORY: No accessory muscle use. Clear to auscultation. Breath sounds equal bilaterally. GASTROINTESTINAL: Abdomen soft, nondistended, diffuse upper abdominal TTP, no rebound/guarding. Normoactive bowel sounds x4. MUSCULOSKELETAL: No obvious deformities. Extremities without clubbing, cyanosis , or edema. NEUROLOGICAL: Awake and alert. No obvious cranial nerve deficits. Motor grossly within normal limits. Normal speech. PSYCHIATRIC: Appropriate mood and affect; insight and judgment normal. Procedures EGD/Colonoscopy - unremarkable except external hemorrhoids. Medications and IVs Current Medications Medications (Trade) Dose Ordered Sig/Allen Route Start Time Stop Time Status Last Admin (NS Flush) 2 ml UNSCH PRN IVF 03/14/16 09:45 03/15/16 09:45 (Zofran Inj) 4 mg Q6H PRN IVP 03/14/16 13:30 03/16/16 10:11 (Reglan Inj) 5 mg Q6H PRN IV PUSH 03/14/16 13:30 03/14/16 21:05 (Morphine Inj) 2 mg Q3H PRN IV 03/14/16 13:30 03/16/16 13:21 (Narcan Inj) 0.4 mg UNSCH PRN IV 03/14/16 13:30 Levothyroxine Sodium 125 mcg 125 mcg DAILY@0600 PO 03/15/16 06:00 03/16/16 05:17 (NS 1000 ml Inj) 1,000 ml @ 100 mls/hr Q10H IV 03/14/16 14:00 03/16/16 07:27 (Protonix Inj) 40 mg Q24H IV PUSH 03/15/16 09:00 03/16/16 10:11 (Citroma Liq) 300 ml ONCE ONCE PO 03/16/16 18:00 03/16/16 18:01 (Dulcolax Ec) 10 mg DAILY@18,21 PO 03/16/16 18:00 03/16/16 21:01 Urinary Catheter: No Vascular Central Line Catheter: No A/P Problem List: (1) Abdominal pain ICD Code: R10.9 Status: Acute (2) Intractable vomiting ICD Code: R11.10 Status: Acute (3) Partial small bowel obstruction ICD Code: K56.69 Status: Acute (4) Hypothyroidism ICD Code: E03.9 Status: Acute (5) Leukocytosis ICD Code: D72.829 Status: Acute Assessment and Plan 46-year-old female with: Abdominal pain: Secondary to partial small bowel obstruction, likely related to chronic narcotic use. CT abd/pelvis upon arrival showed multiple fluid filled mildly dilated loops of jejunum suggesting partial SBO. Small bowel follow through negative for obstruction. N/V improved, NG tube removed. S/p enteroscopy /colonoscopy today, unremarkable except external hemorrhoids, biopsies taken. Cleared from GI standpoint, discussed with Dr. Larson, advance diet, possible d/c tomorrow if tolerating. Leukocytosis: Likely stress reaction. Monitor labs. Resolved. Tobacco abuse: Patient has been counseled to quit smoking. Chronic narcotic use: Patient takes morphine 15 mg bid for DDD and fibromyalgia. Discussed with her that this could contribute to constipation and possibly be contributing to her symptoms. We will use caution with pain medications. Will cover with IV morphine prn. Hypothyroidism: Continue Synthroid. DVT prophylaxis: SCDs, JACKELIN gonzales. Written by Lian Dinh, acting as scribe for Dr. Morrow on 03/16/16 at 12:43. The documentation accurately reflects the work performed [id number] by me Dr. Morrow on 03/16/16 at 12:43. Problem Qualifiers (1) Abdominal pain: Qualified Code: R10.84 - Generalized abdominal pain (2) Intractable vomiting: Qualified Code: R11.2 - Intractable vomiting with nausea, unspecified vomiting type Lian Dinh PA-C Mar 16, 2016 10:28 Brenda Morrow MD Mar 16, 2016 16:42
[2016-03-16] MEDS ORDERED: MAGNESIUM CITRATE SOLN 300 ML BTL PO ONE ×2 (12:00→18:00)
[2016-03-16] MEDS ORDERED: NORC5TAB PO (12:59)
[2016-03-16] MEDS ORDERED: COLA100C3 PO (13:00)
[2016-03-16] MEDS: BISACODYL EC 5 MG TABEC PO SCH ×2 (16:36→21:00)
[2016-03-17 00:56] VITALS: BP 109/58; PULSE 57; RESP 20; TEMP 97.5; O2SAT 96
[2016-03-17] MEDS: SODIUM CHLOR 0.9% 1000 ML INJ 1,000 ML IV SCH (01:08)
[2016-03-17 04:51] VITALS: BP 100/55; PULSE 62; RESP 20; TEMP 98; O2SAT 96
[2016-03-17] MEDS: LEVOTHYROXINE SODIUM 125 MCG TAB PO SCH (05:14)
[2016-03-17] MEDS: ONDANSETRON HCL 4 MG/2 ML VIAL IVP PRN (05:14)
[2016-03-17 07:30] VITALS: BP 112/68; PULSE 53; RESP 18; TEMP 97.2; O2SAT 97
--- NOTE | 2016-03-17 09:58 | HHI.GIFU ---
Subjective Remarks Resting in bed. States she is feeling better, but did have more abdominal pain after eating grits and molina. No n/v. Multiple loose stools. (Dolly Berry) Objective Vitals I&O Vital Signs Date Time Temp Pulse Resp B/P Pulse Ox O2 Delivery O2 Flow Rate FiO2 03/17/16 07:30 97.2 53 18 112/68 97 03/17/16 04:51 98.0 62 20 100/55 96 03/17/16 00:56 97.5 57 20 109/58 96 03/16/16 21:25 18 03/16/16 19:40 98.3 71 20 111/73 95 03/16/16 15:32 97.7 60 18 109/69 97 03/16/16 13:18 97.5 59 16 114/62 97 I/O 03/16/16 03/16/16 03/16/16 03/17/16 03/17/16 03/17/16 07:00 15:00 23:00 07:00 15:00 23:00 Intake Total 1410 ml Balance 1410 ml Intake IV Total 1010 ml Other 400 ml # Voids 4 1 # Bowel Movements 4 1 Laboratory Date/Time Procedure Status Source Growth 03/14/16 23:43 Cryptosporidium Exam - Final Complete Stool Stool NEGATIVE - NO CRYPTOSPORIDIUM ANTIGEN... 03/14/16 23:43 Stool Pus (FATOUMATA) - Final Complete Stool Stool RARE WBC 03/14/16 23:43 Giardia Antigen (FATOUMATA) - Final Complete Stool Stool NEGATIVE - NO GIARDIA ANTIGEN DETECTE... 03/14/16 23:43 - Final Complete Stool Stool NO ENTERIC PATHOGENS DETECTED BY PCR... Imaging Last Impressions Small Bowel X-Ray 03/14/16 0000 Signed Impressions: Service Date/Time: Monday, March 14, 2016 16:49 - CONCLUSION: 1. Negative for obstruction. Contrast reaches colon by one hour and 30 minutes. Mildly dilated proximal small bowel loops. Nasogastric tube coiled in the stomach. No free air. Samm Mcmanus MD Abdomen/Pelvis CT 03/14/16 0000 Signed Impressions: Service Date/Time: Monday, March 14, 2016 11:54 - CONCLUSION: Multiple fluid filled mildly dilated loops of jejunum suggesting partial small bowel obstruction, small bowel ileus or jejunitis. Clinical correlation is recommended. Clinton Cm MD Physical Exam HEENT: Normocephalic; atraumatic; no jaundice. CHEST: CTA CARDIAC: RRR ABDOMEN: Soft, nondistended, mild tenderness; no hepatosplenomegaly; bowel sounds are present in all four quadrants. NGT to LIWS- small amount drainage EXTREMITIES: No clubbing, cyanosis, or edema. SKIN: Normal; no rash; no jaundice. AIRPORT RAMP SUPERVISOR: No focal deficits; alert and oriented times three. (Dolly Berry) Assessment and Plan Plan ASSESSMENT: - N/V, Abdominal pain with abnormal imaging, possible PSBO. Abdomen/Pelvis CT ( )---> Multiple fluid filled mildly dilated loops of jejunum suggesting partial small bowel obstruction, small bowel ileus or jejunitis. Clinical correlation is recommended. Pt reports that she has had symptoms intermittently for 20 years, but sudden worsening a few weeks ago after traveling to [place]. No abx, no sick contacts. Pt was hospitalized at [facility], had imaging, told she had sbo and then enteritis and was discharged on Flagyl. Her symptoms persisted and she became worse with more n/v today and therefore came back to ER here. Only abdominal surgery oophorectomy. No NSAID use. SBFT (03/14/16)--> 1. Negative for obstruction. Contrast reaches colon by one hour and 30 minutes. Mildly dilated proximal small bowel loops. Nasogastric tube coiled in the stomach. No free air. EGD/Colonoscopy (03/16/16)-----> erythematous gastritis, colonic mucosa appeared normal throughout the entire examined colon, multiple random biopsies of the area, internal hemorrhoids. Pathology pending. States improved, but did have some abdominal pain after eating grits and molina. Worried that she will feel better and be discharged and start to have the pain again. Stool studies negative - Leukocytosis. Improved. PLAN: - MATTHEW - Await pathology - PPI - Add dicyclomine - Okay to d/c home from GI standpoint - FU SHANELLE 2 weeks - Pt seen and examined by Dr. Larson and myself and this note is written on his behalf (Dolly Berry) Physician Comments Seen and examined with LESA, feels better today, no bleeding. Very tortuous colon on colonoscopy yesterday. ACBE not done due to colon biopsies. Can be done as outpatient. Will sign off, please schedule fu as outpatient. Thank you ( Lisa Larson MD) Dolly Berry Mar 17, 2016 09:58 Lisa Larson MD Mar 17, 2016 16:39
[2016-03-17] MEDS: PANTOPRAZOLE SODIUM 40 MG VIAL IV PUSH SCH (10:01)
[2016-03-17] MEDS: MORPHINE SULFATE 4 MG/ML INJ IV PRN (10:02)
[2016-03-17] MEDS: METOCLOPRAMIDE HCL 10 MG/2 ML VIAL IV PUSH PRN (10:02)
--- NOTE | 2016-03-17 10:10 | HHI.DS ---
Discharge Summary Admission Date Mar 14, 2016 at 18:42 Discharge Date: Mar 17, 2016 Admitting Diagnosis bowel obstruction (1) Abdominal pain ICD Code: R10.9 Diagnosis: Principal (2) Intractable vomiting ICD Code: R11.10 Diagnosis: Principal (3) Partial small bowel obstruction ICD Code: K56.69 Diagnosis: Principal (4) Hypothyroidism ICD Code: E03.9 Diagnosis: Secondary (5) Leukocytosis ICD Code: D72.829 Diagnosis: Secondary Procedures EGD/Colonoscopy 03/16/16 - unremarkable except external hemorrhoids. Brief History - From Admission The patient is a 46-year-old female who presented to the emergency department today complaining of worsening abdominal pain, nausea, and vomiting. She states that she was hospitalized at [facility] in [place] last week. She was discharged on Monday. Her symptoms were very similar and she was told that she might have a small bowel obstruction. She states that she did well on Monday and Monday following discharge from the hospital, but her symptoms worsened this morning. She developed intractable nausea and vomiting as well as upper abdominal pain. She also reports headache. She has some chest discomfort, which she feels is the same as the upper abdominal pain. She does feel somewhat better at this time than when she came in. She did have a bowel movement today, which she describes as loose, but not watery. CBC/BMP: 03/16/16 0546 03/16/16 0546 Significant Findings Laboratory Tests Test 03/14/16 03/15/16 03/16/16 10:40 08:12 05:46 White Blood Count 15.5 TH/MM3 (4.0-11.0) Platelet Count 498 TH/MM3 (150-450) Neutrophils (%) (Auto) 79.1 % (16.0-70.0) Neutrophils # (Auto) 12.3 TH/MM3 (1.8-7.7) Platelet Estimate HIGH (NORMAL) Red Blood Count 3.98 MIL/MM3 3.70 MIL/MM3 (4.00-5.30) (4.00-5.30) Chloride Level 112 MEQ/L (98-107) Estimat Glomerular Filtration 69 ML/MIN (>89) 69 ML/MIN (>89) Rate Calcium Level 8.3 MG/DL 8.0 MG/DL (8.5-10.1) (8.5-10.1) Hematocrit 33.3 % (35.0-46.0) Blood Urea Nitrogen 6 MG/DL (7-18) Imaging Last Impressions Small Bowel X-Ray 03/14/16 0000 Signed Impressions: Service Date/Time: Monday, March 14, 2016 16:49 - CONCLUSION: 1. Negative for obstruction. Contrast reaches colon by one hour and 30 minutes. Mildly dilated proximal small bowel loops. Nasogastric tube coiled in the stomach. No free air. Samm Mcmanus MD Abdomen/Pelvis CT 03/14/16 0000 Signed Impressions: Service Date/Time: Monday, March 14, 2016 11:54 - CONCLUSION: Multiple fluid filled mildly dilated loops of jejunum suggesting partial small bowel obstruction, small bowel ileus or jejunitis. Clinical correlation is recommended. Clinton Cm MD PE at Discharge GENERAL: Well-nourished, well-developed middle aged female patient in [facility]. SKIN: Warm and dry. No rash. HEAD: Normocephalic. Atraumatic. NECK: Supple. Trachea midline. CARDIOVASCULAR: Regular rate and rhythm. S1, S2 noted. No murmur appreciated. RESPIRATORY: No accessory muscle use. Clear to auscultation. Breath sounds equal bilaterally. GASTROINTESTINAL: Abdomen soft, nondistended, nontender. Normoactive bowel sounds x4. MUSCULOSKELETAL: No obvious deformities. Extremities without clubbing, cyanosis , or edema. NEUROLOGICAL: Awake and alert. No obvious cranial nerve deficits. Motor grossly within normal limits. Normal speech. PSYCHIATRIC: Appropriate mood and affect; insight and judgment normal. Pt update on day of discharge The patient feels improved and feels comfortable going home today. He isn't tolerating full liquids, but would like to try a regular diet. She began having bowel movements. Hospital Course 46-year-old female with: Abdominal pain: Secondary to partial small bowel obstruction, likely related to chronic narcotic use. CT abd/pelvis upon arrival showed multiple fluid filled mildly dilated loops of jejunum suggesting partial SBO. Small bowel follow through negative for obstruction. N/V improved, NG tube removed. S/p enteroscopy /colonoscopy, unremarkable except external hemorrhoids, biopsies taken. Stool cultures essentially negative. Cleared from GI standpoint, discussed with gastroenterology. Continue PPI. ADAT. Bentyl added. Follow up with gastroenterology for results of biopsy and final stool cultures. Leukocytosis: Likely stress reaction. Monitor labs. Resolved. Tobacco abuse: Patient has been counseled to quit smoking. Chronic narcotic use: Patient takes morphine 15 mg bid for DDD and fibromyalgia. Discussed with her that this could contribute to constipation and possibly be contributing to her symptoms. We will use caution with pain medications. We'll provide when necessary [place] for breakthrough at discharge. Continue stool softeners. Hypothyroidism: Continue Synthroid. Pt Condition on Discharge: Stable Discharge Disposition: Discharge Home Discharge Time: > 30 minutes Discharge Instructions DIET: Follow Instructions for: As Tolerated, No Restrictions Activities you can perform: Regular-No Restrictions Follow up Referrals: Gastroenterology - 2 Weeks @ [facility] PCP Follow-up - 1 Week New Medications: Docusate Sodium (Colace) 100 Mg Cap 100 MG PO BID Constipation #60 Ref 0 CAP Hydrocodone-Acetaminophen ([place]) 5-325 mg Tab 1 TAB PO Q4H PRN PAIN #10 Ref 0 TAB Pantoprazole (Protonix) 40 Mg Tab 40 MG PO DAILY Reflux #30 Ref 0 TAB Dicyclomine (Bentyl) 20 Mg Tab 20 MG PO TID abdominal cramping #60 TAB Continued Medications: Levothyroxine (Synthroid) 125 Mcg Tab 125 MCG PO DAILY Thyroid Ref 0 TAB Morphine ER (Morphine ER) 30 Mg Tab 30 MG PO DAILY Pain Management Ref 0 TAB Discontinued Medications: Metronidazole (Flagyl) 500 Mg Tab 500 MG PO TID Infection Ref 0 TAB Additional Information Written by Mani Armstrong, acting as scribe for Dr. Morrow on 03/17/16 at 10:10. The documentation accurately reflects the work performed [id number] by me Dr. Morrow on 03/17/16 at 10:10. Mani Armstrong Mar 17, 2016 10:10 Brenda Morrow MD Mar 17, 2016 11:26
[2016-03-17] MEDS ORDERED: BENT20TA PO (10:11)
[2016-03-17] MEDS ORDERED: PROT40TA PO (10:14)
[2016-03-17] MEDS ORDERED: DICYCLOMINE HCL 20 MG TAB PO SCH (13:00)
== END 2016-03-17 11:25 | disposition home or self-care (01) | DRG 390 ==
LOC: NEPE 09:07 → NEDA 12:50 → OBSVTOIN 18:42 → NEPGCP 19:17
PROVIDERS: ADMIT Hospitalist; ATTEND Hospitalist
PROC: 0DB68ZX Excision of Stomach, Via Natural or Artificial Opening Endoscopic, Diagnostic (ICD-10-PCS; principal; 2016-03-16 09:00)
PROC: 0DBE8ZX Excision of Large Intestine, Via Natural or Artificial Opening Endoscopic, Diagnostic (ICD-10-PCS; 2016-03-16 09:00)
DX: K56.69 Other intestinal obstruction (principal); E03.9 Hypothyroidism, unspecified; M79.7 Fibromyalgia; G89.29 Other chronic pain; Z79.891 Long term (current) use of opiate analgesic; R11.2 Nausea with vomiting, unspecified; D72.829 Elevated white blood cell count, unspecified; K29.70 Gastritis, unspecified, without bleeding; K64.8 Other hemorrhoids; K64.4 Residual hemorrhoidal skin tags; K59.09 Other constipation; R51 Headache; F17.210 Nicotine dependence, cigarettes, uncomplicated; F12.90 Cannabis use, unspecified, uncomplicated; Z83.79 Family history of other diseases of the digestive system
CPT/HCPCS: 43753; 74176; 74250; 80048; 80053; 81001; 83690; 85025; 87205; 87328; 87329; 87493; 87506; 88305; 88312; 93005; 96361; 96372; 96374; 96375; C9113; J1885; J2270; J2405; J2550; J2765; J7030; Q9963